=== PATIENT | female | born 1990 | race African-American/Black ===

== ENCOUNTER 2018-08-22 22:24 | Emergency (ER) | payer MEDICAID ==
[~2018-08-22] VITALS: Ht 167.6 cm; Wt 72.6 kg
[2018-08-22 22:25] VITALS: BP_SYST 129
[2018-08-22] MEDS ORDERED: cloNIDine HCL 0.1 MG TABLET PO ONE (23:15)
[2018-08-22 23:39] VITALS: BP_SYST 149
== END 2018-08-22 23:40 ==
LOC: SED 22:24
DX: I10 Essential (primary) hypertension (principal); F15.90 Other stimulant use, unspecified, uncomplicated
CPT/HCPCS: 99283